=== PATIENT | female | born 1935 | race Caucasian/White ===

== ENCOUNTER 2024-11-18 10:18 | Outpatient (CLI) | payer MEDICARE, SELFPAY ==
--- NOTE | ~2024-11-18 | XR_ITS ---
XR hip LT 2V w AP pelvis 11/18/2024 10:43 Indication: Left hip pain Procedure: AP pelvis and 2 views left hip Comparison: No prior studies for comparison. Findings: Moderate osteoarthritis of the left hip. No fracture, subluxation or dislocation. Pelvic ri ngs intact. Sacral foramen are symmetric. 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 Pelvic rings intact. Impression: 1: Moderate osteoarthritis of the left hip. Reviewed, dictated and finalized at location A. Impression: 1: Moderate osteoarthritis of the left hip.
== END 2024-11-18 10:19 | disposition home or self-care (01) ==
LOC: MICIMG 10:22
PROVIDERS: PCP Internal Medicine; Visit Provider Internal Medicine
DX: M16.12 Unilateral primary osteoarthritis, left hip (principal)
CPT/HCPCS: 73502